=== PATIENT | male | born 1975 | race Caucasian/White ===

== ENCOUNTER 2020-10-12 13:07 | Emergency (ER) | payer OTHER, SELFPAY ==
[2020-10-12 13:07] VITALS: BP 159/98; PULSE 75; RESP 19; TEMP 36.7; O2SAT 97; BMI 30.9
--- NOTE | 2020-10-12 13:10 | EKG12_ITS ---
Test Reason : CP Blood Pressure : / mmHG Vent. Rate : 073 BPM Atrial Rate : 073 BPM P-R Int : 146 ms QRS Dur : 084 ms QT Int : 356 ms P-R-T Axes : 028 024 021 degrees QTc Int : 392 ms Normal sinus rhythm Normal ECG Confirmed by JOAO DENNIS, TARYN ([id number]), proposal editor SHAYY WONG ([id number]) on 10/15/2020 10:19:23 AM Referred By: WANG/MERCED Confirmed By:TARYN SHEPHERD MD
[2020-10-12 13:22] VITALS: BP 166/98; PULSE 81; RESP 18; O2SAT 98
[2020-10-12 13:28] LABS: Absolute Lymphocyte Count 2.13 X10^3/uL (0.83-4.51); Absolute Neutrophil Count 3.1 X10^3/uL (2.0-7.7); Basophil# 0.03 X10^3/uL; Basophil% 0.5 % (0-1); Eosinophil# 0.05 X10^3/uL; Eosinophils% 0.9 % (0-5); Hematocrit 43.9 % (40-54); Hemoglobin 15.4 g/dL (13.0-16.5); Lymphocyte # 2.13 X10^3/ul (0.83-4.51); Lymphocyte % 36.3 % (19-41); Mean Corp Hgb Conc 35.1 g/dL (32-36); Mean Corpuscular Hgb 32.3 pg (27.0-32.0); Monocyte# 0.51 X10^3/uL; Monocyte% 8.7 % (0-10); NRBC Flagged by Analyzer 0 % (0-5); Neutrophil # 3.13 X10^3/uL (2.7-7.7); Neutrophil % 53.3 % (47-70); Platelet Count 214 K/mm3 (150-450); RBC Distribution Width CV 12.1 % (11.6-14.6); RBC Distribution Width SD 40.8 fl (35.1-43.9); Red Blood Count 4.77 M/mm3 (4.6-6.2); White Blood Count 5.9 K/mm3 (4.4-11.0)
--- NOTE | 2020-10-12 13:30 | RAD_ITS ---
STUDY: X-RAY CHEST REASON FOR EXAM: Male, 45 years old. Left-sided chest pain. TECHNIQUE: Single AP portable view of the chest. COMPARISON: None. FINDINGS: EKG electrodes are seen. The lungs are clear and expanded. Scattered calcified granulomas. There is no demonstrated pleural abnormality. Normal size heart. Normal mediastinum and jayda. Normal visualized pulmonary arteries. Normal visualized aortic arch and descending thoracic aorta. Normal visualized thoracic spine. Normal visualized ribs, clavicles, and shoulders. There is no demonstrated abnormality of the visualized soft tissue structures of the upper abdomen. RAD/Chest 1 View (Portable) IMPRESSION: Normal x-ray examination of the chest. Electronically Signed: Paul Hoffman MD at 14:06 EDT , Service support ,
[2020-10-12 13:45] LABS: Anion Gap 6 (5-15); BUN 20 mg/dL (7-18); Chloride 108 mmol/L (98-107); Creatinine, Serum 1.05 mg/dL (0.70-1.30); EST Glomerular Filtration Rate 81 mL/min (>60); Est Glom Filt Rate - Afr Amer 98 mL/min (>60); Estimated Creatinine Clearance 95.62 ml/min; Glucose 118 mg/dL (74-106); Potassium 3.6 mmol/L (3.5-5.1); Sodium Level 141 mmol/L (136-145); Troponin-I HS 4 pg/mL (3.0-78.0)
[2020-10-12 14:07] VITALS: BP 143/86; PULSE 79; RESP 16; O2SAT 97
--- NOTE | 2020-10-12 14:44 | ED.VIS.CHEST ---
HPI History of Present Illness Chief Complaint: Chest Pain Informant: patient Onset/Context/Timing Onset: Weeks (1) Activity at onset: gradual Timing: Intermittent and Lasts (1 to 2 hours) Quality: Positive for Aching and Dull Location: Left Chest Worsened By: Nothing Relieved By: - (Massage) Associated Symptoms: Positive for Lightheadedness; Negative for Nausea, Vomiting, Diaphoresis, Dyspnea, Cough, Fever, Acid Reflux and Palpitations Narrative Narrative: Patient presents with chest pain that has been intermittent over the last week. Patient states that last for hours when it comes on. Patient describes the pain as dull and aching. Patient states the pain is over the left chest into the left axilla. Patient denies any left arm pain. Patient states nothing makes it worse. Patient states he feels better whenever he rubs his chest. Patient had an episode of lightheadedness yesterday but denies any current lightheadedness. Prior Similar Symptoms: No CVD Risk Factors: Negative for Hypertension, Diabetes, Hypercholesterolemia, Family History 1' </=55 and Smoking PE Risk Factors: Negative for Recent Travel/Surgery, Recent Immobilization, Prior DVT or PE, Cancer and OCP + Smoking + >/=35 PFSH PFSH Medical History (Updated 10/12/20 @ 16:[address] Rylan Fuentes DO) ACL tear Home Medications NK 10/12/20 [History Last Taken Unknown] Allergy/AdvReac Type Severity Reaction Status Date / Time No Known Allergies Allergy Verified 10/12/20 13:09 Surgical History (Updated 10/12/20 @ 14:[address] Rylan Fuentes DO) S/P ACL repair Social History Smoking Status: Never smoker ROS ROS ED Constitutional Constitutional ED: Denies chills or fever(s) Eyes Eyes: Denies blurry vision or change in vision ENT ENT ED: Denies rhinorrhea or sore throat Cardiovascular Cardiovascular: Reports chest pain and palpitations Respiratory/Chest Respiratory/Chest: Reports dyspnea; Denies cough Gastrointestinal Gastrointestinal: Reports nausea; Denies abdominal pain or vomiting Genitourinary Genitourinary ED: Denies dysuria or hematuria Musculoskeletal Musculoskeletal: Denies back pain or neck pain Integumentary Denies abscess or rash Neurologic Neurologic: Denies headache(s) or weakness Allergic/Immunologic Allergic/Immunologic ED: Denies mouth swelling or urticaria EXAM Physical Exam Const Vital Signs: 10/12/20 15:00 10/12/20 16:45 Pulse Rate 78 68 Respiratory Rate 16 15 Blood Pressure 138/74 H 127/79 H Blood Pressure Mean 95 Pulse Ox 97 98 Oxygen Delivery Method Room Air Positive well nourished and well developed General Appearance ED: well developed HEENT normocephalic and atraumatic Eyes PERRL and EOMs intact bilaterally Neck supple and no JVD Chest Wall palpation of chest normal Resp normal respiratory effort and clear to auscultation bilaterally Effort and Inspection: Negative for respiratory distress Cardio regular rate, regular rhythm and no murmurs GI normal to inspection, nondistended, normoactive bowel sounds, soft to palpation, non-tender and non-distended Extremity normal to inspection General Extremety ED: Negative for edema or tenderness General Extremity: Negative for edema Neuro oriented x3, CN's II-XII intact bilaterally and no sensory deficits noted Sensorium / Orientation: awake and alert Motor Exam: strength 5/5 throughout Psych mental status grossly normal Heart Score History: Slightly/Non-Suspicious ECG: Normal Age: </= 45 years Risk Factors: No Risk Factors Troponin: </= Normal Limit Score: 0 MDM MDM MDM Narrative Medical decision making narrative: EKG was obtained. On my interpretation, it showed a normal sinus rhythm with a rate of 73. MO interval, QRS interval, and QTc intervals were all normal. [place] was normal. There are no acute ST or T wave changes. Portable 1 view chest x-ray was obtained. On my interpretation, lung valera are clear. There is normal cardiac silhouette. Bony thorax is normal. There is no acute process noted. Radiologist also interpreted the x-ray and agrees. CBC and basic metabolic profile were within normal limits. Initial high-sensitivity troponin was normal. 2-hour repeat troponin was obtained and is pending. Patient has a HEART score of 0. Patient was advised that this is low risk for acute cardiac event. Patient was instructed to follow-up with his primary care physician in 5 to 7 days. Patient understood and was agreeable with the plan. All questions were answered. Care of the oncoming physician pending troponin results. If these are negative, which I anticipate, patient will be discharged home. Lab Data Attestation: I reviewed the patient's lab results. Labs: Laboratory Results - last 24 hr 10/12/20 15:35 Troponin I High Sens 5 Radiography Chest X-Ray - ED: 1 View, Read by ED Physician, Read by Radiologist and Normal Diagnostic Testing: Radiology Impression Chest X-Ray 10/12/20 13:30 IMPRESSION: Normal x-ray examination of the chest. Electronically Signed: Paul Hoffman MD at 14:06 EDT , Service support , Discharge Plan Triage Chief Complaint: Chest Pain ED Provider: Rylan Fuentes Dx/Rx/DC Orders Clinical Impression: Chest pain Instructions: ED Chest Pain, Uncertain Cause Prescriptions: No Action NK RF: 0 Primary Care Provider: Michael Mccracken Referrals: Michael Mccracken DO [Primary Care Provider] - 5-7 Days Disposition Disposition: Home, Self Care Discharge Date/Time: 10/12/20 16:46
[2020-10-12 15:00] VITALS: BP 138/74; PULSE 78; RESP 16; O2SAT 97
[2020-10-12 16:14] LABS: Troponin-I HS 5 pg/mL (3.0-78.0)
[2020-10-12 16:45] VITALS: BP 127/79; PULSE 68; RESP 15; O2SAT 98
== END 2020-10-12 16:46 | disposition home or self-care (01) ==
PROVIDERS: Emergency Provider Emergency Medicine; PCP Family Medicine
DX: R07.89 Other chest pain (principal); R42 Dizziness and giddiness
CPT/HCPCS: 71045; 80048; 84484; 85025; 93005; 99284; A4216

== ENCOUNTER → 2020-11-11 12:05 | Outpatient (CLI) | payer OTHER, SELFPAY | PROVIDERS: PCP Family Medicine; Visit Provider Family Medicine | DX: R06.83 Snoring (principal); R06.81 Apnea, not elsewhere classified | CPT/HCPCS: 95806 ==

== ENCOUNTER 2025-01-10 05:28 | Day surgery (SDC) | payer OTHER, SELFPAY ==
[2025-01-10] VITALS (8 sets, daily range): BP systolic 87–115; BP diastolic 62–90; PULSE 67–91; RESP 16; TEMP 36.1–36.4; O2SAT 94–97; BMI 30.8
--- OUTSIDE RECORDS SUMMARY | 2025-01-10 05:30 | XMS RPT_ITS | CCD ---
Author Organization [facility] Care Team Providers Care Fleet Salesperson Name Role Phone Dr. Michael Mccracken DO Primary Care Physician Dr. Michael Mccracken DO Referring Provider [phone] Deejay SCHULTZ Attending Physician Deejay Chin Attending Unavailable Michael Mccracken Primary Care Unavailable Michael Mccracken Referring Unavailable Deejay Chin Attending Unavailable Michael Mccracken Primary Care Unavailable Allergies Allergy Classification Reported Allergen(s) Allergy Type Date of Onset Reaction(s) Facility (1 source) Environmental Allergies: Uncoded; Translations: [Environmental Allergies: Uncoded] Propensity to adverse reactions (disorder) [facility] Repository Problems Problem Classification Problem Date Documented Da te Episodic/Chronic Esophageal disorders (2 sources) Gastroesophageal reflux disease; Translations: [Gastro-esophageal reflux disease without esophagitis] 11-13-2024 Chronic Nonspecific chest pain (1 source) Chest pain; Translations: [Chest pain, unspecified] 10-12-2020 Episodic Other screening for suspected conditions (not mental disorders or infectious disease) (2 sources) Patient encounter status; Translations: [Encounter for screening for malignant neoplasm of colon] 11-13-2024 Episodic Results Test Name Value Interpretation Reference Range Facility Gastroenterology Visit Repor ton 11-13-2024 Gastroenterology Visit Report [facility] [address] [place] [address] OFFICE VISIT Date of Service: 11/13/24 MR#: [id number] Acct: [id number] Name: SANDRAWANGWILLIAM Danay Rep #: [id number] : 1975 Provider: Deejay Chin DO Age/Sex: 49/M Location: [facility] Status: Signed Intake Vital Signs 10/12/20 13:07 Height 5 ft 11 in Intake Visit Reasons: GERD DYSPHAGIA Allergies Environmental Allergies: Uncoded (seasonal) Allergy (Unknown, Verified 11/13/24 07:37) Other Medications ???Medication ???Instructions ???Recorded ???Confirmed ???Type NK 10/12/20 11/13/24 History Nurse's Note: Pt was scheduled for EGD and Colonoscopy on 12.19.24 at the end of their appt today. Reviewed prep instructions and which medications to hold prior to procedure with pt in office. A paper copy of Miralax prep instructions were given to pt. Pt denies any questions or concerns at this time. [facility] Medical History (Updated 11/13/24 @ 08:[address] Villalba Friend, ) Dysphagia Left knee pain Snoring PVC (premature ventricular contraction) GERD (gastroesophageal reflux disease) ACL tear Surgical History S/P ACL repair Family History (Updated 11/13/24 @ 07:36 by Deja Sarmiento) Father Diabetes Social History (Updated 10/31/24 @ 11:08 by Brittni Casiano) Smoking Status: Never smoker alcohol intake: never HPI HPI Details: WILLIAM BLISS, is a 49-year-old male with a history of GERD who presents with new-onset dysphagia. He reports experiencing heartburn for several years, which has been managed with [id number] antacids. Over the past few weeks, he has noticed that solid foods feel like they are getting stuck in his throat or chest. He denies any associated chest pain, weight loss, nausea, or vomiting. He has also noticed occasional regurgitation of sour liquid. His symptoms are exacerbated by lying flat after meals. He also states he is overdue for colonoscopy. Also reports he is having acid reflux, during the night mostly. Reports that this comes and goes and is unable to pinpoint trigger foods that aggravate symptoms. Pt also notes very sporadic difficulty swallowing bready foods such as rice, tortillas, and bread. Pt states that his mother had a hiatal hernia and wonders if this could be a factor with his symptoms. ROS Const Constitutional: No fatigue, fever(s) or weight change ENT ENT: No difficulty swallowing Gastro GI: Positive for heartburn; No abdominal pain, belching, bloating, change in bowel habits, change in stool character, coffee ground emesis, constipation, cramping, diarrhea, difficulty swallowing, feeling full early, excessiv e flatus, incontinent of stools, Vomiting blood/hematemesis, Blood in stool, loose stools, Black,tarry stools, nausea/dyspepsia, pain with swallowing, vomiting or other Musc Musculoskeletal: No joint pain Skin Skin: No yellowing of the eye or itchy eyes Psych Psychiatric: No anxiety and No depression Endo Endocrine: No fatigue or weight change Aller/Imm Allergy/Immunologic: No itchy eyes Roberto/Lymp Hematologic/Lymphatic : No easy bleeding or easy bruising Exam Const General: cooperative, healthy appearing, comfortable and no acute distress Nutritional Appearance: well nourished Orientation: oriented x3 Eyes Sclera: sclerae normal Resp Effort Inspection: normal respiratory effort Auscultation: Bilateral: Clear to Auscultation Cardio Rate: regular rate Rhythm: regular rhythm GI Inspection: normal to inspection Assessment and Plan Assessment and Plan (1) GERD (gastroesophageal reflux disease): Status: Acute (2) Screening for colon cancer: Status: Acute Plan: Assessment * Primary Diagnosis:???Gastroes ophageal Reflux Disease (GERD) with dysphagia. * Differential Diagnosis: * Peptic stricture:???Can be caused by chronic GERD and can present with progressive dysphagia. * Esophageal cancer:???Given the patient's age and new-onset dysphagia, this must be ruled out. Risk factors include chronic GERD and smoking history. * Live's esophagus:???A complication of long-term GERD that can lead to cancer. * Eosinophilic esophagitis:???An allergic inflammatory condition of the esophagus. * Average-risk screening colonoscopy:???At age 49, the patient meets the criteria for an average-risk colorectal cancer screening, as guidelines now recommend beginning screening at age 45. Plan * GERD/Dysphagia: * Medication:???Initiat e treatment with a proton pump inhibitor (PPI) after the EGD. * Lifestyle modifications:???Advi se elevating the head of the bed, avoiding meals close to bedtime, and minimizing consumption of fatty, spicy, or acidic foods. * Further Evaluation:???Refer to Gastroenterology (more content not included)... Normal [facility] Encounters Encounter Date Encounter Type Care Provider Facility Start: 01-10-2025 ambulatory Deejayethel Chin Facility :[facility] Start: 11-13-2024 End: 11-13-2024 Patient encounter procedure Deejay Chin DO -[facility] Work Phone: Start: 11-13-2024 End: 11-13-[address] Michael Mccracken DO Work Phone: -[facility] Payers Date Payer Category Payer Self-pay 2024 Unknown [id number] 2011 Unknown [id number] Unknown [id number] Unknown [id number] Social History Date Type Detail Facility Start: [facility]24 [facility] Sex Male [facility] Start: 1975 Sex Assigned At Male [facility] Progress note 11-13-2024 Note Date & Type Note Facility 11-13-2024 Progress note [facility] Evaluation note Note Date & Type Note Facility Evaluation note Diagnosis Onset Date Resolution GERD (gastroesophageal reflux disease) acute November 13, 2024 7:32am Screening for colon cancer acute November 13, 2024 7:32am [facility] Work Phone: Progress note Note Date & Type Note Facility Progress note Note Date/Time November 13, 2024 8:05am [facility] [address] [place] [address] OFFICE VISIT Date of Service: 11/13/24 MR#: [id number] Acct: [id number] Name: YAIMLKAWAGNERWILLIAM Danay Rep #: [id number] : 1975 Provider: Deejay Chin DO Age/Sex: 49/M Location: [facility] Status: Signed Intake Vital Signs 10/12/20 13:07 Height 5 ft 11 in Intake Visit Reasons: GERD DYSPHAGIA Allergies Environmental Allergies: Uncoded (seasonal) Allergy (Unknown, Verified 11/13/24 07:37) Other Medications ?Medication ?Instructions ?Recorded ?Confirmed ?Type NK 10/12/20 11/13/24 History Nurse's Note: Pt was scheduled for EGD and Colonoscopy on 12.19.24 at the end of their appt today. Reviewed prep instructions and which medications to hold prior to procedure with pt in office. A paper copy of Miralax prep instructions were given to pt. Pt denies any questions or concerns at this time. [facility] Medical History (Updated 11/13/24 @ 08:[address] Villalba Friend, DO) Dysphagia Left knee pain Snoring PVC (premature ventricular contraction) GERD (gastroesophageal reflux disease) ACL tear Surgical History S/P ACL repair Family History (Updated 11/13/24 @ 07:36 by Deja Sarmiento) Father Diabetes Social History (Updated 10/31/24 @ 11:08 by Brittni Casiano) Smoking Status: Never smoker alcohol intake: never HPI HPI Details: WILLIAM BLISS, is a 49-year-old male with a history of GERD who presents with new-onset dysphagia. He reports experiencing heartburn for several years, which has been managed with [id number]-[id number] antacids. Over the past few weeks, he has noticed that solid foods feel like they are getting stuck in his throat or chest. He denies any associated chest pain, weight loss, nausea, or vomiting.He has also noticed occasional regurgitation of sour liquid. His symptoms are exacerbated by lying flat after meals. He also states he is overdue for colonoscopy. Also reports he is having acid reflux, during the night mostly. Reports that this comes and goes and is unable to pinpoint trigger foods that aggravate symptoms. Pt also notes very sporadicdifficulty swallowing bready foods such as rice, tortillas, and bread. Pt states that his mother had a hiatal hernia and wonders if this could be a factorwith his symptoms. ROS Const Constitutional: No fatigue, fever(s) or weight change ENT ENT: No difficulty swallowing Gastro GI: Positive for heartburn; No abdominal pain, belching, bloating, change in bowel habits, change in stool character, coffee ground emesis, constipation, cramping, diarrhea, difficulty swallowing, feeling full early, excessive flatus, incontinent of stools, Vomiting blood/hematemesis, Blood in stool, loose stools, Black,tarry stools, nausea/dyspepsia, pain with swallowing, vomiting or other Musc Musculoskeletal: No joint pain Skin Skin: No yellowing of the eye or itchy eyes Psych Psychiatric: No anxiety and No depression Endo Endocrine: No fatigue or weight change Aller/Imm Allergy/Immunologic: No itchy eyes Roberto/Lymp Hematologic/Lymphatic: No easy bleeding or easy bruising Exam Const General: cooperative, healthy appearing, comfortable and no acute distress Nutritional Appearance: well nourished Orientation: oriented x3 Eyes Sclera: sclerae normal Resp Effort & Inspection: normal respiratory effort Auscultation: Bilateral: Clear to Auscultation Cardio Rate: regular rate Rhythm: regular rhythm GI Inspection: normal to inspection Assessment and Plan Assessment and Plan (1) GERD (gastroesophageal reflux disease): Status: Acute (2) Screening for colon cancer: Status: Acute Plan: Assessment * Primary Diagnosis:?Gastroesophageal Reflux Disease (GERD) with dysphagia. * Differential Diagnosis: * Peptic stricture:?Can be caused by chronic GERD and can present with progressive dysphagia. * Esophageal cancer:?Given the patient's age and new-onset dysphagia, this must be ruled out. Risk factors include chronic GERD and smoking history. * Live's esophagus:?A complication of long-term GERD that can lead to cancer. * Eosinophilic esophagitis:?An allergic inflammatory condition of the esophagus. * Average-risk screening colonoscopy:?At age 49, the patient meets the criteria for an average-risk colorectal cancer screening, as guidelines now recommend beginning screening at age 45. Plan * GERD/Dysphagia: * Medication:?Initiate treatment with a proton pump inhibitor (PPI) after the EGD. * Lifestyle modifications:?Advise elevating the head of the bed, avoiding meals close to bedtime, and minimizing consumption of fatty, spicy, or acidic foods. * Further Evaluation:?Refer to Gastroenterology for an esophagogastroduodenoscopy (EGD) to investigate the dysphagia and exclude potential complications such as strictures, Live's esophagus, or malignancy. * Screening Colonoscopy: * Considering the patient's age and average risk, a screening colonoscopy is recommended. * Discuss the possibility of performing an upper endoscopy concurrently with the colonoscopy for convenience and to evaluate the dysphagia. * Order a colonoscopy with necessary bowel preparation instructions and educate the patient about the significance of colorectal cancer screening beginning at age 45. * Patient Education:?Explain the relationship between chronic reflux and dysphagia and emphasize the importance of identifying and treating the root cause. Review the risks and benefits associated with the EGD and colonoscopy procedures. Coding Level of Care Code Off vis,new,level 4 Diagnoses GERD (gastroesophageal reflux disease) K21.9 Screening for colon cancer Z12.11 11/13/24 0815 <Electronically signed by Deejay blas DO> Date _ Deejay Shoemaker Signature: Date (if applicable) CC: ~ [facility] Work Phone: Reason for referral (narrative) Note Date & Type Note Facility Reason for referral (narrative) No reason for referral information available [facility] Work Phone: Chief Complaint and Reason for Visit Chief Complaint Admit Date GERD DYSPHAGIA November 13, 2024 7:32am Reason for Visit Admit Date GERD (gastroesophageal reflux disease) S eptember 2024 7:32am Screening for colon cancer October 7:32am Summary Purpose Family History No Family History Records Found Advance Directives No Advanced Directives Records Found Additional Source Comments Care Teams (unrecognized sec tion and content) Team Status: Active Member Role/Relationship Status Dates Dr. Michael Mccracken DO Primary care physician Active Team Status: Inactive Member Role/Relationship Status Dates Dr. Michael Mccracken DO Primary care physician Active Start: November 13, 2024 End: November 13, 2024 Dr. Michael Mccracken DO Referring Provider Active Start: November 13, 2024 End: November 13, 2024 Dr. Deejay Chin DO Attending physician Active Start: November 13, 2024 End: Anne 24th, 2025 Goals (unrecognized section and content) Goals may be documented in a n alternate section (unrecognized sect ion and content) No Status Records Found INFORMATION SOURCE (unrecogn ized section and content) DATE CREATED AUTHOR 12/16/2024 [facility] FOR RECORDS PERTAINING TO PATIENTS WHO ARE OR HAVE BEEN ENROLLED IN A CHEMICAL DEPENDENCY/SUBSTANCEABUSE PROGRAM, SOME INFORMATION MAY BE OMITTED. This clinical summary was aggregated from multiple sources. Caution should be exercised in using it in the provision of clinical care. This summary normalizes information from multiple sources, and as a consequence, information in this document may materially change the coding, format and clinical context of patient data. In addition, data may be omitted in some cases. CLINICAL DECISIONS SHOULD BE BASED ON THE PRIMARY CLINICAL RECORDS. [employer] provides no warranty or guarantee of the accuracy or completeness of information in this document.
[2025-01-10] MEDS: Lactated Ringers 1,000 ML 15 ML IV (06:04)
--- NOTE | 2025-01-10 06:30 | COLBX_PTH ---
PATIENT: WILLIAM LBISS LOC: EN U#:[id number] AGE/SX: 50/M ROOM: RE01/10/[address]: Dr. Deejay Chin DO : 1975 BED: DIS: 01/10/2025 SPEC #: [id number] RECD: 01/10/25 10:36 STATUS: KATHY RELuis #: [id number] DENZEL: 01/10/25 06:[address]: Deejay Chin DEPT: SURGICAL PATHOLOGY RECD BY: Willie White ENTERED: 01/10/25 13:47 SP TYPE: COLON BX OTHR DR: Dr. Michael Mccracken DO Tissues: A - Esophagus, NOS Procedures: Surgery Specimen Level IV HEADER OPERATION: Colonoscopy, EGD and biopsy PRE-OP DIAGNOSIS: Screening and GERD TISSUE SUBMITTED: A- Distal esophagus biopsy MICROSCOPIC DIAGNOSIS A. Esophagus, distal, biopsy: * Squamous epithelium with acute and chronic inflammation with mucosal erosion, granulation tissue and fibrinous material * Cardiac type mucosa with mild chronic focal active inflammation and goblet cells (intestinal metaplasia) negative for dysplasia Note: Staining for PAS is in progress and will be reported as an addendum MICROSCOPIC DESCRIPTION Slides are reviewed. GROSS DESCRIPTION A. Received in fixative is one container labeled with the patient's name and designated Distal esophagus biopsy. The specimen consists of four irregular fragments of vanegas tissue that measure 0.2 to 0.5 cm. The specimen is totally submitted in one cassette. TN 01/10/2025 CPT:93618
--- NOTE | 2025-01-10 06:30 | PCM.PRE.AN2 ---
ASA Classification* ASA Classification ASA Classification: 2 Assessment & Plan Anesthesia* Anesthesia Assessment Anesthesia Assessment: Discussed sedation and/or anesthesia options, risks, benefits, and alternatives with patient/parents/legal guardian/POA. Questions invited. The patient/parents/legal guardian/POA seems to understand and agrees to proceed with anesthesia plan. Reviewed the physical assessment, medical history, allergy history and patient home medications list prior to surgery/procedure/anesthetic and documented any changes. Performed airway and anesthesia risk assessments. Anesthesia Type Anesthesia Type: MAC Anesthesia Focused Assessment* Temperature: 97.1 F Pulse Rate: 91 Blood Pressure: 114/90 Respiratory Rate: 16 Pulse Ox: 96 Airway Assessment Mouth opens: >3 cm Mallampati Score: II Labs Anesthesia Preop lab: CBC WBC, (4.4-11.0) 5.9 K/mm3 10/12/20, 13:20 RBC, (4.6-6.2) 4.77 M/mm3 10/12/20, 13:20 Hgb, (13.0-16.5) 15.4 g/dL 10/12/20, 13:20 Hct, (40-54) 43.9 % 10/12/20, 13:20 Plt Count, (150-450) 214 K/mm3 10/12/20, 13:20 CHEMISTRY Potassium, (3.5-5.1) 3.6 mmol/L 10/12/20, 13:20 Sodium, (136-145) 141 mmol/L 10/12/20, 13:20 BUN, (7-18) 20 mg/dL H 10/12/20, 13:20 Creatinine, (0.70-1.30) 1.05 mg/dL 10/12/20, 13:20 Glucose, (74-106) 118 mg/dL H 10/12/20, 13:20 POC Glucose, (70-110) 99 mg/dL 08/18/14, 07:20 COAG Pre-Assessment Diagnosis/Proposed Procedure Planned Operative Procedure(s): (N/A) Colonoscopy,EGD Anesthesia History 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 When Was Last Pacemaker Check QUESTION #4 FULL TEXT: You/Your Family Experience fever (hyperthermia) with Anesthesia Last Oral Intake Last Oral intake: Last Oral Intake NPO since 02:30 01/10/25 05:57 Meds taken in AM with sips of water? Meds patient instructed to take am of surgery PONV PONV - table top tile setter: PONV - table top tile setter Female No 01/07/25 10:51 HX of Motion Sickness No 01/07/25 10:51 HX of N/V After Surgery No 01/07/25 10:51 Non-Smoker Yes 01/07/25 10:51 Duration of Surgery greater No 01/07/25 10:51 than 60 minutes Number of Risk Factors 1 01/07/25 10:51 PONV Score Low Risk 01/07/25 10:51 Height & Weight Height & Weight: Anesthesia: Height & Weight Height 5 ft 11 in 01/10/25 05:57 Weight: 100.244 kg 01/10/25 05:57 Body Mass Index (BMI) 30.8 01/10/25 05:57 Respiratory Assessment Respiratory Assessment - table top tile setter: Respiratory Tract Infection Hx - table top tile setter Hx Respiratory Tract Infection No 01/07/25 10:51 STOP Sleep Apnea STOP Sleep Apnea - table top tile setter: STOP Sleep Apnea - table top tile setter Hx Hypertension No 01/07/25 10:51 Hx Sleep Apnea No 01/07/25 10:51 CPAP BIPAP Do you snore loudly (louder No 01/07/25 10:51 than talking or can be heard Do you often feel tired/ No 01/07/25 10:51 fatigued/ sleepy during daytime? Has anyone observed you stop No 01/07/25 10:51 breathing during sleep? STOP Results Negative 01/07/25 10:51 QUESTION #5 FULL TEXT : Do you snore loudly (louder than talking or can be heard through closed doors)? 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 Specify any problems Hx of Preganancy in last 3 N/A 01/07/25 10:51 Months Nurse Filling Out Transfusion NBUCHER 01/07/25 10:51 & Questions: Date: 01/07/25 01/07/25 10:51 Time: 10:52 01/07/25 10:51 Patient unable to answer at this time (ie. confused, unrespo /Reproduction History /Reproductive History - table top tile setter: /Reproductive Hx- table top tile setter Hx Now No 01/07/25 10:51 Gestational Age (in weeks): EDC: Hx Hx Para Hx Section SAB No 01/07/25 10:51 Does the father of the baby or his family experience fever w Father of the baby Malignant Hypertension history comment Active Medications Active Medications: Current Medications Generic Name Dose Route Start Last Admin Trade Name Freq PRN Reason Stop Dose Admin Lactated Ringer's 1,000 mls @ 15 mls/hr 01/10/25 06:00 01/10/25 06:04 IV 15 mls/hr .Q48H CHARANJIT Administration PFSH Medical History History of cardiac monitoring Non-smoker Dysphagia Left knee pain Snoring PVC (premature ventricular contraction) GERD (gastroesophageal reflux disease) ACL tear Home Medications ?Medication ?Instructions ?Recorded ?Last Taken ?Type doxycycline hyclate 20 mg tablet 20 mg PO BID 01/07/25 01/08/25 History ivermectin 1 % topical cream 1 applic topical QHS 01/07/25 Unknown History Allergy/AdvReac Type Severity Reaction Status Date / Time Environmental Allergies: Allergy Unknown Other Verified 01/10/25 05:54 Uncoded (seasonal) Family History Father Diabetes Surgical History S/P ACL repair Social History Smoking Status: Never smoker alcohol intake: never Review of Systems (Anesthesia) ROS Narrative System reviewed and no additional complaints, except as documented.
--- NOTE | 2025-01-10 06:39 | HP.PCM_ITS ---
[facility] - General General Date of Admission: 01/10/25 Date of Service: 01/10/25 Chief Complaint: GERD abd CRS HPI Narrative WILLIAM BLISS, is a 50 M who presents with new-onset dysphagia. He reports experiencing heartburn for several years, which has been managed with [id number] antacids. Over the past few weeks, he has noticed that solid foods feel like they are getting stuck in his throat or chest. He denies any associated chest pain, weight loss, nausea, or vomiting. He has also noticed occasional regurgitation of sour liquid. His symptoms are exacerbated by lying flat after meals. He also states he is overdue for colonoscopy. Also reports he is having acid reflux, during the night mostly. Reports that this comes and goes and is unable to pinpoint trigger foods that aggravate symptoms. Pt also notes very sporadic difficulty swallowing bready foods such as rice, tortillas, and bread. Pt states that his mother had a hiatal hernia and wonders if this could be a factor with his symptoms. ] FORMERLY [facility], 1928–1983 Medical History History of cardiac monitoring Non-smoker Dysphagia Left knee pain Snoring PVC (premature ventricular contraction) GERD (gastroesophageal reflux disease) ACL tear Home Medications ?Medication ?Instructions ?Recorded ?Last Taken ?Type doxycycline hyclate 20 mg tablet 20 mg PO BID 01/07/25 01/08/25 History ivermectin 1 % topical cream 1 applic topical QHS 12/21 10/14 Unknown History Allergy/AdvReac Type Severity Reaction Status Date / Time Environmental Allergies: Allergy Unknown Other Verified 01/10/25 05:54 Uncoded (seasonal) Family History Father Diabetes Surgical History S/P ACL repair Social History Smoking Status: Never smoker alcohol intake: never ROS Constitutional Constitutional: Denies fatigue, fever(s), poor appetite, weight gain or weight loss Gastrointestinal Gastrointestinal: Denies belching, bloating, change in bowel habits, change in stool character, chewing difficulty, coffee ground emesis, constipation, cramping, diarrhea, dyspepsia, dysphagia, early satiety, excessive flatus, fecal incontinence, heartburn, hematemesis, hematochezia, hemorrhoids, loose stools, melena, nausea, odynophagia, rectal bleeding, tenesmus, vomiting or weight changes Vital Signs Vital Signs Vital Signs: 01/10/25 05:57 01/10/25 05:57 01/10/25 05:57 Temperature 97.1 F L Temperature Source Temporal Pulse Rate 91 Respiratory Rate 16 Respiratory Pattern Normal Blood Pressure 114/90 H Blood Pressure Mean 98 Blood Pressure Source Monitor Blood Pressure Position Sitting Blood Pressure Location Right Arm Baseline BP 114/90 Pulse Ox 96 Oxygen Delivery Method Room Air 01/10/25 06:31 Temperature 97.1 F L Temperature Source Pulse Rate 91 Respiratory Rate 16 Respiratory Pattern Blood Pressure 114/90 H Blood Pressure Mean Blood Pressure Source Blood Pressure Position Blood Pressure Location Baseline BP Pulse Ox 96 Oxygen Delivery Method Weight Weight: 221 lb Body Mass Index (BMI) 30.8 Physical Exam Const alert, oriented x3, no apparent distress and healthy appearing General Appearance: cooperative GI normal to inspection, nondistended, normoactive bowel sounds, soft to palpation, non-tender and non-distended Percussion: normal to percussion Rectal Exam: deferred Assessment & Plan Assessment/Plan (1) Screening for colon cancer: (2) GERD (gastroesophageal reflux disease): PLAN: Assessment and Plan Assessment and Plan (1) GERD (gastroesophageal reflux disease): Status: Acute (2) Screening for colon cancer: Status: Acute Plan: Assessment * Primary Diagnosis:?Gastroesophageal Reflux Disease (GERD) with dysphagia. * Differential Diagnosis: * Peptic stricture:?Can be caused by chronic GERD and can present with progressive dysphagia. * Esophageal cancer:?Given the patient's age and new-onset dysphagia, this must be ruled out. Risk factors include chronic GERD and smoking history. * Live's esophagus:?A complication of long-term GERD that can lead to cancer. * Eosinophilic esophagitis:?An allergic inflammatory condition of the esophagus. * Average-risk screening colonoscopy:?At age 49, the patient meets the criteria for an average-risk colorectal cancer screening, as guidelines now recommend beginning screening at age 45. Plan * GERD/Dysphagia: * Medication:?Initiate treatment with a proton pump inhibitor (PPI) after the EGD. * Lifestyle modifications:?Advise elevating the head of the bed, avoiding meals close to bedtime, and minimizing consumption of fatty, spicy, or acidic foods. * Further Evaluation:?Refer to Gastroenterology for an esophagogastroduodenoscopy (EGD) to investigate the dysphagia and exclude potential complications such as strictures, Live's esophagus, or malignancy. * Screening Colonoscopy: * Considering the patient's age and average risk, a screening colonoscopy is recommended. * Discuss the possibility of performing an upper endoscopy concurrently with the colonoscopy for convenience and to evaluate the dysphagia. * Order a colonoscopy with necessary bowel preparation instructions and educate the patient about the significance of colorectal cancer screening beginning at age 45. * Patient Education:?Explain the relationship between chronic reflux and dysphagia and emphasize the importance of identifying and treating the root cause. Review the risks and benefits associated with the EGD and colonoscopy procedures.
--- NOTE | 2025-01-10 07:26 | PCM.POST.ANE ---
Anesthesia: Postop Eval I Current Vital Signs Temperature: 97.6 F Pulse Rate: 76 Blood Pressure: 115/63 Respiratory Rate: 16 Pulse Ox: 94 Oxygen Delivery Method: Room Air Assessment Airway patent: Yes Spontaneous unlabored respirations: Yes Mental status: Asleep nausea: No Vomiting: No Anesthesia Complication: No Fluid Hydration Crystalloid volume administer (ml): 500 Total IV fluid infused: 500 Progress Note Anesthesia document: Postop Eval 1 completed: Yes
--- NOTE | 2025-01-10 07:30 | OP.PROVAT_ITS ---
01/10/2025 Michael Mccracken [address] [facility] [place] [address] Re : Upper GI endoscopy procedure for Naseem Gill Dear Dr. Mccracken This procedure was performed on Friday, January 10, 2025. My impressions and recommendations are as follows: Impressions : - LA Grade D reflux esophagitis with bleeding. Biopsied. - Medium-sized hiatal hernia. - No gross lesions in the entire stomach. - No gross lesions in the entire examined duodenum. Recommendations : - Discharge patient to home. - Resume previous diet. - Continue present medications. - Await pathology results. - Repeat upper endoscopy in 4 months for surveillance. - Use Protonix (pantoprazole) 40 mg PO BID. My findings are described in the full procedure note, which is enclosed. If I can be of further assistance, please feel free to contact me at . Sincerely, Deejay Friend, 01/10/2025 7:29:28 AM This report has been signed electronically.
--- NOTE | 2025-01-10 07:30 | OP.EGD_ITS ---
Patient Name: Naseem Gill Procedure Date: 01/10/2025 6:35 AM Date of : 1975 Age: 50 Procedure: Upper GI endoscopy Indications: Heartburn, Suspected esophageal reflux Providers: Deejay Chin DO Referring MD: Michael Mccracken Medicines: Monitored Anesthesia Care Patient Profile: This is a 50 year old male. Refer to note in patient chart for documentation of history and physical. Patient has symptoms of chronic heartburn. Complications: No immediate complications. Procedure: Pre-Anesthesia Assessment: - Prior to the procedure, a History and Physical was performed, and patient medications and allergies were reviewed. The patient is competent. The risks and benefits of the procedure and the sedation options and risks were discussed with the patient. All questions were answered and informed consent was obtained. Patient identification and proposed procedure were verified by the physician in the pre-procedure area. Mental Status Examination: alert and oriented. Airway Examination: normal oropharyngeal airway and neck mobility. Respiratory Examination: clear to auscultation. CV Examination: normal. Prophylactic Antibiotics: The patient does not require prophylactic antibiotics. Prior Anticoagulants: The patient has taken no anticoagulant or antiplatelet agents. ASA Grade Assessment: II - A patient with mild systemic disease. After reviewing the risks and benefits, the patient was deemed in satisfactory condition to undergo the procedure. The anesthesia plan was to use monitored anesthesia care (MAC). Immediately prior to administration of medications, the patient was re-assessed for adequacy to receive sedatives. The heart rate, respiratory rate, oxygen saturations, blood pressure, adequacy of pulmonary ventilation, and response to care were monitored throughout the procedure. The physical status of the patient was re-assessed after the procedure. After obtaining informed consent, the endoscope was passed under direct vision. Throughout the procedure, the patient's blood pressure, pulse, and oxygen saturations were monitored continuously. The Colonoscope was introduced through the mouth, and advanced to the second part of duodenum. The upper GI endoscopy was accomplished with ease. The patient tolerated the procedure well. Scope In: 6:54:04 AM Scope Out: 6:59:36 AM Total Procedure Duration Time 0 hours 5 minutes 32 seconds Findings: LA Grade D (one or more mucosal breaks involving at least 75% of esophageal circumference) esophagitis with bleeding was found 33 to 40 cm from the incisors. Biopsies were taken with a cold forceps for histology. Verification of patient identification for the specimen was done. Estimated blood loss was minimal. A medium-sized hiatal hernia was present. No gross lesions were noted in the entire examined stomach. No gross lesions were noted in the entire examined duodenum. Impression: - LA Grade D reflux esophagitis with bleeding. Biopsied. - Medium-sized hiatal hernia. - No gross lesions in the entire stomach. - No gross lesions in the entire examined duodenum. Recommendation: - Discharge patient to home. - Resume previous diet. - Continue present medications. - Await pathology results. - Repeat upper endoscopy in 4 months for surveillance. - Use Protonix (pantoprazole) 40 mg PO BID. Procedure Code(s): --- Professional --- 54738, Esophagogastroduodenoscopy, flexible, transoral; with biopsy, single or multiple CPT copyright 2021 [employer]. All rights reserved. The codes documented in this report are preliminary and upon swing tender review may be revised to meet current compliance requirements. Deejay Chin DO 01/10/2025 7:29:28 AM This report has been signed electronically. Number of Addenda: 0 Note Initiated On: 01/10/2025 6:35 AM
--- NOTE | 2025-01-10 07:31 | OP.PROVAT_ITS ---
01/10/2025 Michael Mccracken [address] [place] [address] Re : Colonoscopy procedure for Naseem Bridget Dear Dr. Mccracken This procedure was performed on Friday, January 10, 2025. My impressions and recommendations are as follows: Impressions : - Diverticulosis in the recto-sigmoid colon. - The examination was otherwise normal on direct and retroflexion views. - No specimens collected. Recommendations : - Discharge patient to home. - Resume previous diet. - Continue present medications. - Repeat colonoscopy in 10 years for screening purposes. My findings are described in the full procedure note, which is enclosed. If I can be of further assistance, please feel free to contact me at . Sincerely, Deejay Chin, 01/10/2025 7:31:21 AM This report has been signed electronically.
--- NOTE | 2025-01-10 07:31 | OP.COLON_ITS ---
Patient Name: Naseem Gill Procedure Date: 01/10/2025 6:59 AM Date of : 1975 Age: 50 Procedure: Colonoscopy Indications: Screening for colorectal malignant neoplasm Providers: Deejay Chin DO Referring MD: Michael Mccracken Medicines: Monitored Anesthesia Care Patient Profile: This is a 50 year old male. Refer to note in patient chart for documentation of history and physical. Patient has symptoms of chronic heartburn. Last Colonoscopy: none. The patient's first colonoscopy is today. Complications: No immediate complications. Procedure: Pre-Anesthesia Assessment: - Prior to the procedure, a History and Physical was performed, and patient medications and allergies were reviewed. The patient is competent. The risks and benefits of the procedure and the sedation options and risks were discussed with the patient. All questions were answered and informed consent was obtained. Patient identification and proposed procedure were verified by the physician in the pre-procedure area. Mental Status Examination: alert and oriented. Airway Examination: normal oropharyngeal airway and neck mobility. Respiratory Examination: clear to auscultation. CV Examination: normal. Prophylactic Antibiotics: The patient does not require prophylactic antibiotics. Prior Anticoagulants: The patient has taken no anticoagulant or antiplatelet agents. ASA Grade Assessment: II - A patient with mild systemic disease. After reviewing the risks and benefits, the patient was deemed in satisfactory condition to undergo the procedure. The anesthesia plan was to use monitored anesthesia care (MAC). Immediately prior to administration of medications, the patient was re-assessed for adequacy to receive sedatives. The heart rate, respiratory rate, oxygen saturations, blood pressure, adequacy of pulmonary ventilation, and response to care were monitored throughout the procedure. The physical status of the patient was re-assessed after the procedure. After I obtained informed consent, the scope was passed under direct vision. Throughout the procedure, the patient's blood pressure, pulse, and oxygen saturations were monitored continuously. The Colonoscope was introduced through the anus and advanced to the cecum, identified by appendiceal orifice and ileocecal valve. The colonoscopy was performed without difficulty. The patient tolerated the procedure well. The quality of the bowel preparation was adequate. The ileocecal valve, appendiceal orifice, and rectum were photographed. Scope In: 7:01:58 AM Scope Withdrawal Time 0 hours 11 minutes 5 seconds Scope Out: 7:18:09 AM Total Procedure Duration Time 0 hours 16 minutes 11 seconds Findings: The perianal and digital rectal examinations were normal. A few small-mouthed diverticula were found in the recto-sigmoid colon. The exam was otherwise without abnormality on direct and retroflexion views. Impression: - Diverticulosis in the recto-sigmoid colon. - The examination was otherwise normal on direct and retroflexion views. - No specimens collected. Recommendation: - Discharge patient to home. - Resume previous diet. - Continue present medications. - Repeat colonoscopy in 10 years for screening purposes. Procedure Code(s): --- Professional --- G0121, Colorectal cancer screening; colonoscopy on individual not meeting criteria for high risk CPT copyright 2021 [employer]. All rights reserved. The codes documented in this report are preliminary and upon icd 9 coder review may be revised to meet current compliance requirements. Deejay Chin DO 01/10/2025 7:31:21 AM This report has been signed electronically. Number of Addenda: 0 Note Initiated On: 01/10/2025 6:59 AM
--- NOTE | 2025-01-10 12:12 | PCM.POSTANE2 ---
Anesthesia Postop Eval I Sum Postop Eval Completion status Anesthesia document: Postop Eval 1 completed: Yes Anesthesia Postop Eval I Summary Anesthesia Postop Eval I Summary: Anesthesia Postop Eval I: Assessment Summary Airway patent Yes 01/10/25 07:28 [email or web address] Spontaneous unlabored Yes 01/10/25 07:28 [email or web address] respirations Mental status Asleep 01/10/25 07:28 [email or web address] nausea No 01/10/25 07:28 [email or web address] Vomiting No 01/10/25 07:28 [email or web address] Anesthesia Postop Eval I: Fluid Summary Crystalloid volume administer 500 01/10/25 07:28 [email or web address] (ml) Colloids volume administered ( ml) Blood Product volume administered (ml) Total IV fluid infused 500 01/10/25 07:28 [email or web address] Anesthesia Postop Eval I: Summary Notes Anesthesia Complication No 01/10/25 07:28 [email or web address] Anesthesia Complication Comment: Post-operative progress note Anesthesia: Postop Eval II Evaluation Mental status: Awake Pain Level: 0 nausea: No Vomiting: No
== END 2025-01-10 08:12 | disposition home or self-care (01) ==
LOC: EN 05:28 → AC 05:35
PROVIDERS: PCP Family Medicine; Referring Provider Family Medicine; Visit Provider Internal Medicine Gastroenterology
PROC: 0DJD8ZZ Inspection of Lower Intestinal Tract, Via Natural or Artificial Opening Endoscopic (ICD-10-PCS; CPT 45378; principal; 2025-01-10 06:25)
DX: Z12.11 Encounter for screening for malignant neoplasm of colon (principal); R13.10 Dysphagia, unspecified; K44.9 Diaphragmatic hernia without obstruction or gangrene; K57.90 Diverticulosis of intestine, part unspecified, without perforation or abscess without bleeding; K21.00 Gastro-esophageal reflux disease with esophagitis, without bleeding; K22.89 Other specified disease of esophagus; K31.A19 Gastric intestinal metaplasia without dysplasia, unspecified site
CPT/HCPCS: 43239; 45378; 88305; J2405